=== PATIENT | male | born 1985 | race Caucasian/White ===

== ENCOUNTER 2018-02-01 06:20 | Day surgery (SDC) | payer OTHER ==
[2018-01-31 09:34] VITALS: BMI 26.4
[~2018-02-01 06:20] MED LIST: BACITRACIN 15 GM TUBE TOPICAL OINTMENT TP ONE
[2018-02-01] MEDS ORDERED: PROPOFOL 20 ML ONE ×2 (07:38)
[2018-02-01] MEDS ORDERED: LIDOCAINE HCL/PF 2% SDV 5ML VIAL ONE (07:38)
[2018-02-01] MEDS ORDERED: ROCURONIUM BROMIDE 50 MG/5 ML VIAL ONE (07:39)
[2018-02-01] MEDS ORDERED: SUCCINYLCHOLINE CHLORIDE 200 MG/10 ML VIAL ONE (07:39)
[2018-02-01] MEDS ORDERED: MIDAZOLAM HCL 2 MG/2 ML SINGLE DOSE VIAL ONE ×2 (07:39)
[2018-02-01] MEDS ORDERED: LIDOCAINE 1%/EPI 1:100000 (20 ML MULTI DOSE VIAL) ONE (07:53)
[2018-02-01] MEDS ORDERED: BACITRACIN 15 GM TUBE TOPICAL OINTMENT ONE (07:53)
[2018-02-01] MEDS ORDERED: COCAINE HCL 4% TOPICAL SOLUTION 4 ML BOTTLE TP ONE ×2 (08:20→08:39)
[2018-02-01] MEDS ORDERED: DEXAMETHASONE SOD PHOSPHATE 4 MG/1 ML VIAL ONE (08:21)
[2018-02-01] MEDS ORDERED: ceFAZolin SODIUM 1 GM VIAL IVPB ONE (08:38)
[2018-02-01] MEDS ORDERED: LIDOCAINE 1%/EPI 1:100000 (20 ML MULTI DOSE VIAL) IJ ONE ×2 (08:39)
[2018-02-01] MEDS ORDERED: TRIAMCINOLONE ACET 40MG/1ML VIAL ONE (09:20)
[2018-02-01] MEDS ORDERED: BACITRACIN 15 GM TUBE TOPICAL OINTMENT TP ONE (09:20)
[2018-02-01] MEDS ORDERED: NEOSTIGMINE METHYLSULFATE 0.5 MG/ML - 10 ML MDV ONE (09:21)
[2018-02-01] MEDS ORDERED: GLYCOPYRROLATE 0.2 MG/1 ML VIAL ONE (09:21)
[2018-02-01] MEDS ORDERED: TRIAMCINOLONE ACET 40MG/1ML VIAL IJ ONE (09:22)
[2018-02-01] MEDS ORDERED: ACETAMINOPHEN 1000 MG/100 ML VIAL (NON FORMULARY) IVPB ONE (09:54)
[2018-02-01] MEDS ORDERED: ONDANSETRON 4 MG/2 ML VIAL IVPUSH PRN (09:54)
[2018-02-01] MEDS ORDERED: PROMETHAZINE HCL 25 MG/1 ML VIAL IVPUSH PRN (09:54)
[2018-02-01] MEDS ORDERED: LACTATED RINGERS SOLUTION 1,000 ML IV SCH (10:00)
[2018-02-01 11:49] VITALS: TEMP 97.2
[2018-02-01] MEDS ORDERED: ONDANSETRON 4 MG/2 ML VIAL IVPUSH ONE (12:44)
[2018-02-01] MEDS ORDERED: ONDANSETRON 4 MG/2 ML VIAL ONE (12:48)
[2018-02-01 14:06] VITALS: BP 115/54; PULSE 64
--- NOTE | 2018-02-02 11:57 | PATH ---
Surgical Pathology Report Patient Name: OLIVIA STERN [facility]. Rec. #: [id number] /Age/Gender: 1985 (Age: 32) / M Account: [id number] Location: [facility] SURGICAL Taken: 02/01/2018 Received: 02/01/2018 Reported: 02/02/2018 Physicians: Carloz Min M.D. Specimen(s) Received ETHMOID AND MAXILLARY CONTENTS Clinical History Chronic sinusitis and turbinate hypertrophy Final Diagnosis ETHMOID AND MAXILLARY CONTENTS, BILATERAL MAXILLARY ANTROSTOMY, ETHMOIDECTOMY, AND TISSUE REMOVAL: SCANT SOFT TISSUE WITH MILD CHRONIC INFLAMMATION, BONE, AND RARE RESPIRATORY EPITHELIUM ADMIXED WITH BLOOD. Electronically Signed Albertina Godinez M.D. Gross Description Received in formalin labeled "ethmoid and maxillary contents," is a 0.6 x 0.6 x 0.1 cm aggregate of schofield-brown soft tissue fragments. The formalin is filtered and the specimen is entirely submitted in one cassette. 02/01/201802/01/2018
--- NOTE | 2018-02-08 09:22 | OP ---
DATE OF OPERATION: 02/01/2018 PREOPERATIVE DIAGNOSIS: Chronic sinusitis and turbinate hypertrophy. SURGEON: Carloz Min MD ANESTHESIA: General. PROCEDURE: Bilateral endoscopic anterior ethmoidectomy, bilateral frontal sinus balloon dilatation, bilateral maxillary antrostomy with balloon, and inferior turbinate outfracture and cautery, and also sinus navigation. Preoperatively, risks and benefits were discussed, all questions were answered. PROCEDURE FOLLOWS: Patient was brought into the operating room and placed under general anesthesia. Then, Dark Skull [employer] sinus navigation device was placed on patient and calibrated. The patient was prepped and draped. The nose was decongested with 4% cocaine pledgets and 1% lidocaine with 1:100,000 epinephrine which was injected into the lateral nasal wall, inferior turbinate, and middle turbinate, and after examining the nasal cavity with the 0-degree endoscope, some deviation of the nasal septum was noted, but it did not interfere or obstruct the visualization of the middle meatus. Initially, the left middle turbinate was medialized and using the guided frontal balloon, the Medtronic Balloon was then placed up into the frontal sinus on the left side, and 2 separate dilatations of the ostia was performed with the balloon device, 5 seconds a piece. After withdrawal, the Cottonoid was placed into the frontal recess. The same procedure was performed on the right side utilizing the middle turbinate and cannulating the frontal sinus, and 2 separate dilatations of 5 seconds a piece was performed on the right side. After which, the left maxillary ostia was cannulated with the Medtronic guided balloon device and insufflated twice for 5 seconds a piece, and the Cottonoid was then replaced again in the middle meatus. The balloon device was also used to dilate the right maxillary ostia. After cannulating it, 2 separate insufflations were performed for 5 seconds a piece. Of note is that in both ethmoid cavities, small polyps were noted which had not been noticed as well in the office. Using straight suction, first on the left side, the anterior ethmoid bulla was entered, and cells were broken apart with a guided Galan-tipped suction. After which, the 4-mm straight guided Medtronic shaver was used to exonerate the ethmoid air cells to the ground lamella. After this was performed, Cottonoid was then replaced back into the ethmoid cavity and essentially the same procedure was performed on the right side without complication. After the Cottonoid was instilled in the ethmoid cavity on the right side, the inferior turbinates were outfractured using a long nasal speculum. Then, 3 separate passes with the bipolar Elmed cautery was performed, first on the left side, then, the right side, and after removal of the Cottonoid, the nasal cavity was suctioned with a Galan-tipped suction. Then, irregular NasoPore packing was placed in both ethmoid cavities after placing some Bacitracin on the NasoPore packing. Each NasoPore packing was then injected with 0.5 mL of 40 Kenalog. The patient was then awakened and extubated in the operating room and brought to the recovery room in stable condition. [place] [id number]
== END 2018-02-01 14:05 | disposition home or self-care (01) ==
LOC: JASU-SURG 06:20
PROVIDERS: ATTEND Otolaryngology
PROC: 09BU8ZZ Excision of Right Ethmoid Sinus, Via Natural or Artificial Opening Endoscopic (ICD-10-PCS; 2018-02-01)
PROC: 09BV8ZZ Excision of Left Ethmoid Sinus, Via Natural or Artificial Opening Endoscopic (ICD-10-PCS; principal; 2018-02-01 08:00)
DX: J32.8 Other chronic sinusitis (principal); J34.3 Hypertrophy of nasal turbinates
CPT/HCPCS: 88304-TC; 94760; J0131

== ENCOUNTER 2023-05-16 09:52 | Inpatient (IN) | payer OTHER ==
[2023-05-16 10:44] VITALS: BMI 31.3
[2023-05-16] MEDS ORDERED: ONDANSETRON 4 MG/2 ML VIAL ONE (10:45)
[2023-05-16] MEDS ORDERED: KETOROLAC TROMETHAMINE 30 MG/1 ML VIAL ONE (10:45)
[2023-05-16] MEDS: ONDANSETRON 4 MG/2 ML VIAL IVPUSH ONE (11:01)
[2023-05-16] MEDS: KETOROLAC TROMETHAMINE 30 MG/1 ML VIAL IM ONE (11:01)
[2023-05-16] MEDS: SODIUM CHLORIDE 0.9% 500 ML INFUS.BAG IV ONE ×2 (11:05→20:06)
[2023-05-16 11:06] LABS: BASO % 0.3 % (0-2.0); EOS % 1.8 % (0-4.5); HEMATOCRIT 45.2 % (35.4-49); HEMOGLOBIN 15.6 GM/dL (11.7-16.9); LYMPH % 13.3 % (8-40); MCH 29.7 pg (25.7-33.7); MCHC 34.5 g/dl (32.0-35.9); MEAN CELL VOLUME 86.1 fl (80-96); MEAN PLT VOLUME 8.5 fl (7.5-11.1); MONO % 9.2 % (3.8-10.2); NEUT % 75.4 % (42.8-82.8); PLATELET COUNT 278 10^3/uL (134-434); RBC 5.25 M/mm3 (4.00-5.60); RDW 13.2 % (11.9-15.9); WHITE BLOOD COUNT 11.9 K/mm3 (4.0-10.0)
[2023-05-16 11:09] LABS: EPI CELLS 8 /uL (0-25.1); HYALINE CASTS 0 /uL (0-3.1); PH,URINE 5.5 (5.0-8.0); URINE APPEARANCE CLEAR; URINE BACTERIA 1 /uL (0-1359); URINE BILIRUBIN NEGATIVE (NEGATIVE); URINE COLOR YELLOW; URINE GLUCOSE (UA) NEGATIVE (NEGATIVE); URINE KETONE 2+ (NEGATIVE); URINE LEUK ESTERASE NEGATIVE (NEGATIVE); URINE NITRITE NEGATIVE (NEGATIVE); URINE PROTEIN NEGATIVE (NEGATIVE); URINE RBC 10 /uL (0-23.9); URINE UROBILINOGEN 0.2 mg/dL (0.2-1.0); URINE WBC 11 /uL (0-25.8)
[2023-05-16 11:33] LABS: POTASSIUM 3.8 mmol/L (3.5-5.1)
[2023-05-16 11:35] LABS: ALBUMIN 4.2 g/dl (3.4-5.0); BLOOD UREA NITROGEN 14.7 mg/dL (7-18); CALCIUM 9.2 mg/dL (8.5-10.1)
[2023-05-16 11:38] LABS: CREATININE 1.4 mg/dL (0.55-1.3)
[2023-05-16 11:40] LABS: BILIRUBIN,TOTAL 0.9 mg/dL (0.2-1); TOT PROT 7.7 g/dl (6.4-8.2)
[2023-05-16] MEDS ORDERED: ACETAMINOPHEN INJECTION 100 ML IVPB ONE (12:44)
[2023-05-16] MEDS: ACETAMINOPHEN 1000 MG/100 ML BAG IVPB ONE (12:50)
[2023-05-16] MEDS: morphine CARPU-JECT 2 MG/1 ML DISP.SYRIN IVPUSH ONE (14:12)
[2023-05-16] MEDS: SODIUM CHLORIDE 0.45%/POT 20 MEQ/1,000 ML INFUS.BAG IV SCH (17:35)
[2023-05-16] MEDS: KETOROLAC TROMETHAMINE 15 MG/ML VIAL IVPUSH PRN (17:47)
[2023-05-17 09:30] LABS: BASO % 0.3 % (0-2.0); HEMATOCRIT 43.6 % (35.4-49); HEMOGLOBIN 15.2 GM/dL (11.7-16.9); LYMPH % 22.2 % (8-40); MCH 30.3 pg (25.7-33.7); MCHC 34.9 g/dl (32.0-35.9); MEAN CELL VOLUME 86.9 fl (80-96); MEAN PLT VOLUME 9.2 fl (7.5-11.1); MONO % 5.7 % (3.8-10.2); NEUT % 67.8 % (42.8-82.8); PLATELET COUNT 231 10^3/uL (134-434); RBC 5.02 M/mm3 (4.00-5.60); RDW 13.2 % (11.9-15.9); WHITE BLOOD COUNT 7.2 K/mm3 (4.0-10.0)
[2023-05-17 09:54] LABS: POTASSIUM 4.2 mmol/L (3.5-5.1)
[2023-05-17] MEDS: ACETAMINOPHEN 325 MG TABLET (FP) PO PRN ×2 (10:07→21:55)
[2023-05-17 10:12] LABS: CALCIUM 8.9 mg/dL (8.5-10.1)
[2023-05-17 10:13] LABS: ALBUMIN 3.7 g/dl (3.4-5.0); BLOOD UREA NITROGEN 14.8 mg/dL (7-18)
[2023-05-17 10:14] LABS: BILIRUBIN,TOTAL 0.7 mg/dL (0.2-1); TOT PROT 6.8 g/dl (6.4-8.2)
[2023-05-17 10:16] LABS: CREATININE 1.1 mg/dL (0.55-1.3)
[2023-05-17] MEDS ORDERED: ONDANSETRON 4 MG/2 ML VIAL IVPUSH PRN ×2 (13:44→17:18)
[2023-05-17] MEDS ORDERED: MIDAZOLAM HCL 2 MG/2 ML SINGLE DOSE VIAL ONE (16:14)
[2023-05-17] MEDS ORDERED: PROPOFOL 20 ML ONE (16:15)
[2023-05-17] MEDS ORDERED: KETOROLAC TROMETHAMINE 30 MG/1 ML VIAL ONE (16:16)
[2023-05-17] MEDS ORDERED: DEXAMETHASONE SOD PHOSPHATE 4 MG/1 ML VIAL ONE (16:16)
[2023-05-17] MEDS ORDERED: ceFAZolin SODIUM 1 GM VIAL ONE ×2 (16:16→16:38)
[2023-05-17] MEDS ORDERED: ONDANSETRON 4 MG/2 ML VIAL ONE (16:16)
[2023-05-17] MEDS ORDERED: FENTANYL CITRATE/PF 50 MCG/ML VIAL ONE ×4 (16:18→18:05)
[2023-05-17] MEDS: ceFAZolin 2 GRAM PREMIX BAG IVPB ONE (16:28)
[2023-05-17] MEDS ORDERED: GENTAMICIN SO4 80 MG/2 ML VIAL ONE ×2 (16:50→17:02)
[2023-05-17] MEDS: SODIUM CHLORIDE 0.45%/POT 20 MEQ/1,000 ML INFUS.BAG IV SCH (21:00)
[2023-05-17] MEDS: KETOROLAC TROMETHAMINE 15 MG/ML VIAL IVPUSH PRN (21:53)
[2023-05-18 06:49] LABS: BASO % 0.5 % (0-2.0); EOS % 0.5 % (0-4.5); HEMATOCRIT 40.9 % (35.4-49); HEMOGLOBIN 13.9 GM/dL (11.7-16.9); MCH 29.5 pg (25.7-33.7); MCHC 34.1 g/dl (32.0-35.9); MEAN CELL VOLUME 86.5 fl (80-96); MEAN PLT VOLUME 8.8 fl (7.5-11.1); MONO % 7.7 % (3.8-10.2); NEUT % 78.3 % (42.8-82.8); PLATELET COUNT 268 10^3/uL (134-434); RBC 4.72 M/mm3 (4.00-5.60); RDW 12.8 % (11.9-15.9); WHITE BLOOD COUNT 12.2 K/mm3 (4.0-10.0)
[2023-05-18 07:02] LABS: POTASSIUM 4.4 mmol/L (3.5-5.1)
[2023-05-18 07:04] LABS: CALCIUM 8.8 mg/dL (8.5-10.1)
[2023-05-18 07:05] LABS: BLOOD UREA NITROGEN 17.1 mg/dL (7-18)
[2023-05-18 07:08] LABS: CREATININE 1.3 mg/dL (0.55-1.3)
[2023-05-18] MEDS: CEFTRIAXONE 1 GM in DEXTROSE 5%-WATER - 50 ML IVPB SCH (09:09)
[2023-05-18] MEDS: LACTATED RINGERS SOLUTION 1,000 ML IV SCH (09:31)
[2023-05-18] MEDS: TAMSULOSIN HCL 0.4 MG CAP PO ONE (09:32)
[2023-05-18 11:34] LABS: INR 1.21 (0.83-1.09)
[2023-05-18 11:37] LABS: ACTIVATED PTT 34.3 SECONDS (25.2-36.5)
[2023-05-18] MEDS ORDERED: FENTANYL CITRATE/PF 50 MCG/ML VIAL ONE ×3 (15:15→15:33)
[2023-05-18] MEDS ORDERED: MIDAZOLAM HCL 2 MG/2 ML SINGLE DOSE VIAL ONE (15:15)
[2023-05-18] MEDS: FENTANYL CITRATE/PF 50 MCG/ML VIAL IVPUSH ONE ×3 (15:17→15:34)
[2023-05-18] MEDS: MIDAZOLAM HCL 2 MG/2 ML SINGLE DOSE VIAL IVPUSH ONE ×2 (15:17→15:24)
[2023-05-18] MEDS: ACETAMINOPHEN 325 MG TABLET (FP) PO PRN (19:40)
[2023-05-18] MEDS: CEFUROXIME AXETIL 500 MG TABLET PO SCH (21:06)
[2023-05-18 22:47] VITALS: RESP 18
[2023-05-18] MEDS: DOCUSATE SODIUM 100 MG CAPSULE (FP) PO ONE (23:23)
[2023-05-19 06:40] LABS: HEMATOCRIT 39.9 % (35.4-49); HEMOGLOBIN 13.7 GM/dL (11.7-16.9); MCH 29.9 pg (25.7-33.7); MCHC 34.2 g/dl (32.0-35.9); MEAN CELL VOLUME 87.2 fl (80-96); MEAN PLT VOLUME 8.7 fl (7.5-11.1); PLATELET COUNT 243 10^3/uL (134-434); RBC 4.58 M/mm3 (4.00-5.60); RDW 12.9 % (11.9-15.9); WHITE BLOOD COUNT 8.6 K/mm3 (4.0-10.0)
[2023-05-19 06:41] VITALS: BP 109/63; PULSE 65; TEMP 97.9
[2023-05-19 07:02] LABS: POTASSIUM 4.2 mmol/L (3.5-5.1)
[2023-05-19 07:05] LABS: CALCIUM 8.7 mg/dL (8.5-10.1)
[2023-05-19 07:06] LABS: ALBUMIN 3.4 g/dl (3.4-5.0)
[2023-05-19 07:08] LABS: INR 1.24 (0.83-1.09); MAGNESIUM 2.2 mg/dL (1.8-2.4); PROTHROMBIN TIME (PATIENT) 14.3 SEC (9.7-13.0)
[2023-05-19 07:11] LABS: BILIRUBIN,TOTAL 0.4 mg/dL (0.2-1); TOT PROT 6.4 g/dl (6.4-8.2)
[2023-05-19] MEDS: TAMSULOSIN HCL 0.4 MG CAP PO SCH (08:56)
== END 2023-05-19 11:45 | disposition home or self-care (01) | DRG 443 ==
LOC: JER 09:52 → OBSVTOIN 14:36 → JERBED 14:36 → J7W 15:56
PROVIDERS: ADMIT Internal Medicine; ATTEND Nurse Practitioner Acute Care
PROC: 0T9030Z Drainage of Right Kidney with Drainage Device, Percutaneous Approach (ICD-10-PCS; principal; 2023-05-18)
PROC: BT1DYZZ Fluoroscopy of Right Kidney, Ureter and Bladder using Other Contrast (ICD-10-PCS; 2023-05-18)
PROC: 0T9030Z Drainage of Right Kidney with Drainage Device, Percutaneous Approach (ICD-10-PCS; 2023-05-18)
DX: N20.0 Calculus of kidney (principal); N20.1 Calculus of ureter; N23 Unspecified renal colic
CPT/HCPCS: 36415; 50432; 74176-TC; 76000-TC-FY; 80048; 80053; 81003; 83735; 85025; 85027; 85610; 85730; 87070; 87075; 87086; 87205; 94760; 99285-25; J0131; J3480